=== PATIENT | female | born 2000 | race Caucasian/White ===

== ENCOUNTER 2019-06-06 14:04 | Emergency (ER) | payer OTHER ==
--- NOTE | 2019-06-06 14:16 | ER Document Report ---
ED Medical Screen (RME) - General Chief Complaint: Vaginal Bleeding Stated Complaint: VAGINAL BLEEDING/CRAMPING Time Seen by Provider: 06/06/19 14:12 Mode of Arrival: Ambulatory Information source: Patient Notes: 19-year-old female presented to ED for complaint of pelvic pain vaginal bleeding. She states she is on Accutane so she is gone IUD. She states the pain has been since May when her IUD was placed. States this is a very abnormal stress cycle for her. She states it is bright red with lots of clots. States she had a giant clot this morning. She states that they IUD was inserted she had a lot of pain and was only able to lay down due to the pain the neck states she did not have pain and then the next days she had pain and she has had pain ever since then. She states she does not smoke drink or use any drugs. She states she came to the emergency room today because the pain was so bad she could not get up and work but her pain is now a level 3-4/5. - Related Data Allergies/Adverse Reactions: No Known Allergies Allergy (Unverified 06/06/19 14:10) Physical Exam - Vital signs Vitals: Temp Pulse Resp BP Pulse Ox 97.6 F 74 16 130/70 H 100 06/06/19 14:09 06/06/19 14:09 06/06/19 14:09 06/06/19 14:09 06/06/19 14:09 Course - Vital Signs Vital signs: Temp Pulse Resp BP Pulse Ox 97.6 F 74 16 130/70 H 100 06/06/19 14:09 06/06/19 14:09 06/06/19 14:09 06/06/19 14:09 06/06/19 14:09
[2019-06-06 15:08] LABS: ABSOLUTE LYMPHOCYTES (AUTO) 1.6 10^3/uL (0.5-4.7); ABSOLUTE MONOCYTES (AUTO) 0.3 10^3/uL (0.1-1.4); ABSOLUTE NEUT (AUTO) 7.7 10^3/uL (1.7-8.2); BASOPHILS % (AUTO) 0.5 % (0-2); EOSINOPHILS % (AUTO) 0.5 % (0-6); HEMATOCRIT 42.2 % (36.0-47.0); HEMOGLOBIN 14.3 g/dL (12.0-15.5); LYMPHOCYTES % (AUTO) 16.7 % (13-45); MEAN CORPUSCULAR HEMOGLOBIN 30.6 pg (27.0-33.4); MEAN CORPUSCULAR HGB CONC 33.8 g/dL (32.0-36.0); MEAN CORPUSCULAR VOLUME 90 fl (80-97); MONOCYTES % (AUTO) 2.7 % (3-13); PLATELET COUNT 405 10^3/uL (150-450); RED BLOOD COUNT 4.67 10^6/uL (3.72-5.28); RED CELL DISTRIBUTION WIDTH 13.6 % (11.5-14.0); SEGMENTED NEUTROPHILS % (AUTO) 79.6 % (42-78); TOTAL CELLS COUNTED % (AUTO) 100 %; WHITE BLOOD COUNT 9.6 10^3/uL (4.0-10.5)
[2019-06-06 15:23] LABS: APPEARANCE,URINE CLEAR; BILIRUBIN,URINE NEGATIVE (NEGATIVE); COLOR,URINE YELLOW; GLUCOSE, URINE NEGATIVE (NEGATIVE); KETONES,URINE NEGATIVE (NEGATIVE); PROTEIN,URINE NEGATIVE (NEGATIVE); URINE SPECIFIC GRAVITY 1.021; UROBILINOGEN,URINE NEGATIVE mg/dL (<2.0)
[2019-06-06 15:32] LABS: ALKALINE PHOSPHATASE 89 U/L (38-126); ANION GAP 9 (5-19); ASPARTATE AMINO TRANSFERASE 22 U/L (14-36); BILIRUBIN,DIRECT 0.1 mg/dL (0.0-0.4); BILIRUBIN,TOTAL 0.4 mg/dL (0.2-1.3); BLOOD UREA NITROGEN 14 mg/dL (7-20); CALCIUM 10.2 mg/dL (8.4-10.2); CARBON DIOXIDE 29 mmol/L (22-30); CHLORIDE 100 mmol/L (98-107); GLUCOSE 110 mg/dL (75-110); POTASSIUM 4.4 mmol/L (3.6-5.0); TOTAL PROTEIN 8.4 g/dL (6.3-8.2)
--- NOTE | 2019-06-06 15:57 | RADIOLOGY REPORT (SQ) ---
EXAM DESCRIPTION: U/S NON-OB PELVIS TV W/O DOP COMPLETED DATE/TIME: 06/06/2019 3:31 pm REASON FOR STUDY: vaginal bleeding iud pelvic pain COMPARISON: None. TECHNIQUE: Dynamic and static grayscale images acquired of the pelvis via transvaginal approach and recorded on PACS. Additional selected color Doppler and spectral images recorded. LIMITATIONS: None. FINDINGS: UTERUS: Contour normal. No mass. ENDOMETRIAL STRIPE: IUD is in place. Endometrium shows no masses. CERVIX: No nabothian cysts. RIGHT OVARY AND DOPPLER: Septated cyst in the right ovary measured 3.8 x 3.4 x 3.9 cm. Recommend bet a HCG evaluation. This most likely represents complex cyst. Ectopic cannot be excluded. LEFT OVARY AND DOPPLER: Normal size. No worrisome masses. Normal arterial vascular flow without evide nce for torsion. FREE FLUID: There is a small amount of free fluid in the cul de sac. OTHER: No other significant finding. MEASUREMENTS: UTERUS: 8.2 x 5.5 x 3.4 cm. ENDOMETRIAL STRIPE: 5.3 mm. [address]UD is in place. RIGHT OVARY: 3.8 x 3.9 x 4.3 cm. LEFT OVARY: 2.6 x 1.8 x 2.5 cm per IMPRESSION: Cystic lesion in the right ovary as described. This most likely represents complex cyst . Ectopic cannot be excluded. Correlation with beta HCG is recommended. TECHNICAL DOCUMENTATION: JOB ID: [id number] All Rights Reserved Rev Reading location - IP/workstation name: [email or web address]
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
[2019-06-06 18:56] LABS: T.VAGINALIS (WET MOUNT) NO TRICHOMONAS SEEN; WBCS (WET MOUNT) FEW WBCS SEEN; YEAST (WET MOUNT) NO YEAST SEEN
[2019-06-06 19:37] VITALS: BP 111/68
[2019-06-06 20:22] LABS: CHLAM PCR NOT DETECTED (NOT DETECT)
== END 2019-06-06 19:32 | disposition home or self-care (01) ==
LOC: ER 14:04
DX: N83.201 Unspecified ovarian cyst, right side (principal); Z97.5 Presence of (intrauterine) contraceptive device
CPT/HCPCS: 36415; 76830; 80053; 81001; 84702; 85025; 86850; 86900; 86901; 87086; 87210; 87491; 87591; 99284

== ENCOUNTER 2019-09-09 15:53 | Emergency (ER) | payer OTHER ==
[2019-09-09] MEDS ORDERED: ACETAMINOPHEN 325 MG TABLET PO ONE (16:48)
--- NOTE | 2019-09-09 16:50 | ER Document Report ---
ED Medical Screen (RME) - General Chief Complaint: Abdominal Pain Stated Complaint: ABDOMINAL PAIN,BACK PAIN,DIZZINESS Time Seen by Provider: 09/09/19 16:44 Primary Care Provider: ALEJANDRO HANKINS FNP-C [Primary Care Provider] - Follow up as needed Information source: Patient Notes: Patient states that she took several positive home test recently. Patient is G1, P0. Patient states she is had pelvic cramping for the past 4 days with vaginal bleeding. Patient states that she is occasionally passing clots. Patient reports feeling dizzy. I have greeted and performed a rapid initial assessment of this patient. A comprehensive ED assessment and evaluation of the patient, analysis of test results and completion of the medical decision making process will be conducted by additional ED providers. TRAVEL OUTSIDE OF THE [place] IN LAST 30 DAYS: No - Related Data Allergies/Adverse Reactions: cinnamon Allergy (Verified 09/09/19 16:39) nutmeg oil (Myristica seed oil) Allergy (Verified 09/09/19 16:39) Past Medical History Renal/ Medical History: Reports: Hx Ovarian Cysts Physical Exam - Vital signs Vitals: Temp Pulse Resp BP Pulse Ox 98.6 F 77 16 120/78 100 09/09/19 16:38 09/09/19 16:38 09/09/19 16:38 09/09/19 16:38 09/09/19 16:38 - Abdominal Tenderness: Tender - Lower pelvic tenderness Course - Vital Signs Vital signs: Temp Pulse Resp BP Pulse Ox 98.6 F 77 16 120/78 100 09/09/19 16:38 09/09/19 16:38 09/09/19 16:38 09/09/19 16:38 09/09/19 16:38 Doctor's Discharge - Discharge Referrals: ALEJANDRO HANKINS FNP-C [Primary Care Provider] - Follow up as needed
--- NOTE | 2019-09-09 17:19 | ER Document Report ---
ED GI/ - General Chief Complaint: Vaginal Bleeding Stated Complaint: ABDOMINAL PAIN,BACK PAIN,DIZZINESS Time Seen by Provider: 09/09/19 16:44 Primary Care Provider: ALEJANDRO HANKINS FNP-C [NO LOCAL MD] - Follow up as needed Notes: Patient is a 19-year-old female who presents emergency department with chief complaint of vaginal bleeding. Patient reports she currently has an IUD. She reports this was placed May 2018. Patient reports her last menstrual cycle was between July 15 and July 20. Patient reports she has had 4 home positive test. Patient reports on which was 4 days ago she started to have some pelvic cramping and vaginal bleeding. Patient reports this was different from than normal. As it was heavy initially and now it has been light spotting with occasional blood clots. Patient also reports about 4 to 5 days ago she noticed an increase clear drainage from the vagina. She reports this is nonodorous. Patient denies fever. TRAVEL OUTSIDE OF THE [place] IN LAST 30 DAYS: No - Related Data Allergies/Adverse Reactions: cinnamon Allergy (Verified 09/09/19 16:39) nutmeg oil (Myristica seed oil) Allergy (Verified 09/09/19 16:39) Home Medications: Klonipin, Absorbica Past Medical History - General Information source: Patient - Social History Smoking Status: Unknown if Ever Smoked Frequency of alcohol use: None Drug Abuse: None Lives with: Family Family History: None Patient has suicidal ideation: No Patient has homicidal ideation: No - Past Medical History Cardiac Medical History: Reports: None Pulmonary Medical History: Reports: None EENT Medical History: Reports: None Neurological Medical History: Reports: None Endocrine Medical History: Reports: None Renal/ Medical History: Reports: Hx Ovarian Cysts Malignancy Medical History: Reports: None GI Medical History: Reports: None Musculoskeletal Medical History: Reports None Skin Medical History: Reports None Psychiatric Medical History: Reports: None Traumatic Medical History: Reports: None Infectious Medical History: Reports: None Surgical Hx: Negative Review of Systems - Review of Systems Constitutional: No symptoms reported EENT: No symptoms reported Cardiovascular: No symptoms reported Respiratory: No symptoms reported Gastrointestinal: See HPI Genitourinary: No symptoms reported Female Genitourinary: See HPI Musculoskeletal: No symptoms reported Skin: No symptoms reported Hematologic/Lymphatic: No symptoms reported Neurological/Psychological: No symptoms reported Physical Exam - Vital signs Vitals: Temp Pulse Resp BP Pulse Ox 98.6 F 77 16 120/78 100 09/09/19 16:38 09/09/19 16:38 09/09/19 16:38 09/09/19 16:38 09/09/19 16:38 Interpretation: Normal - Notes Notes: GENERAL: Well-appearing, well-nourished and in no acute distress. HEAD: Atraumatic, normocephalic. EYES: Pupils equal round and reactive to light, extraocular movements intact, sclera anicteric, conjunctiva are normal. ENT: TMs normal, nares patent, oropharynx clear without exudates. Moist mucous membranes. NECK: Normal range of motion, supple without lymphadenopathy or JVD. LUNGS: Breath sounds clear to auscultation bilaterally and equal. No wheezes rales or rhonchi. HEART: Regular rate and rhythm without murmurs, rubs or gallops. ABDOMEN: Soft, nontender, normoactive bowel sounds. No guarding, no rebound. No masses appreciated. BACK: No cervical, thoracic, lumbar midline tenderness. No saddle anesthesia, normal distal neurovascular exam. GENITOURINARY: Deferred. EXTREMITIES: Normal range of motion, no pitting or edema. No clubbing or cyanosis. NEUROLOGICAL: Cranial nerves II through XII grossly intact. Normal speech, normal gait. PSYCH: Normal mood, normal affect. SKIN: Warm, Dry, normal turgor, no rashes or lesions noted. Course - Re-evaluation Re-evalutation: 09/09/19 17:37 Patient was taken to ultrasound. Will perform a pelvic examination with wet mount and rule out gonorrhea chlamydia. 09/09/19 18:50 Patient quant was negative. Patient does not have bacterial vaginosis, trichomonas or yeast. I will refer the patient to [facility] for follow-up. - Vital Signs Vital signs: Temp Pulse Resp BP Pulse Ox 98.6 F 77 16 120/78 100 09/09/19 16:38 09/09/19 16:38 09/09/19 16:38 09/09/19 16:38 09/09/19 16:38 - Laboratory Result Diagrams: 09/09/19 17:10 Laboratory results interpreted by me: 09/09/19 16:55 Urine Blood MODERATE H Ur Leukocyte Esterase MODERATE H Patient does not have a leukocytosis, anemia, alteration electrolytes or kidney function. Patient's hCG is negative with a less than 2 quant. Patient is O+. RhoGam is not indicated. Laboratory 09/09/19 09/09/19 09/09/19 16:55 17:10 17:10 WBC 6.4 RBC 4.44 Hgb 13.7 Hct 40.4 MCV 91 MCH 30.8 MCHC 33.8 RDW 13.1 Plt Count 341 Lymph % (Auto) 33.7 [place] % (Auto) 9.2 Eos % (Auto) 2.1 Baso % (Auto) 0.7 Absolute Neuts (auto) 3.5 Absolute Lymphs (auto) 2.2 Absolute Monos (auto) 0.6 Absolute Eos (auto) 0.1 Absolute Basos (auto) 0.0 Seg Neutrophils % 54.3 Beta HCG, Quant < 2.39 Total Beta HCG NEGATIVE Urine Color YELLOW Urine Appearance SLIGHTLY-CLOUDY Urine pH 6.0 Ur Specific [place] 1.015 Urine Protein NEGATIVE Urine Glucose (UA) NEGATIVE Urine Ketones NEGATIVE Urine Blood MODERATE H Urine Nitrite NEGATIVE Urine Bilirubin NEGATIVE Urine Urobilinogen NEGATIVE Ur Leukocyte Esterase MODERATE H Urine WBC (Auto) 3 Urine RBC (Auto) 3 U Hyaline Cast (Auto) 1 Squamous Epi Cells Auto 8 Urine Mucus (Auto) OCC Urine Ascorbic Acid NEGATIVE Blood Type Rhogam Indicated 09/09/19 17:10 WBC RBC Hgb Hct MCV MCH MCHC RDW Plt Count Lymph % (Auto) [place] % (Auto) Eos % (Auto) Baso % (Auto) Absolute Neuts (auto) Absolute Lymphs (auto) Absolute Monos (auto) Absolute Eos (auto) Absolute Basos (auto) Seg Neutrophils % Beta HCG, Quant Total Beta HCG Urine Color Urine Appearance Urine pH Ur Specific [place] Urine Protein Urine Glucose (UA) Urine Ketones Urine Blood Urine Nitrite Urine Bilirubin Urine Urobilinogen Ur Leukocyte Esterase Urine WBC (Auto) Urine RBC (Auto) U Hyaline Cast (Auto) Squamous Epi Cells Auto Urine Mucus (Auto) Urine Ascorbic Acid Blood Type O POSITIVE Rhogam Indicated RHOGAM NOT INDICATED - Diagnostic Test Radiology reviewed: Reports reviewed Radiology results interpreted by me: 09/09/19 18:50 Obstetrics Ultrasound 09/09/19 16:48 IMPRESSION: IUD PRESENT. NO VISUALIZED INTRA- OR EXTRAUTERINE . ECTOPIC CANNOT BE EXCLUDED. FOLLOW-UP ULTRASOUND AND SERIAL BHCG LEVELS STRONGLY RECOMMENDED TO ACCURATELY ASSESS STATUS. Procedures - Pelvic Exam Pelvic exam Time completed: 17:50 Cultures obtained: Yes Wet prep obtained: Yes Witnessed by: AARON JADE Notes: 09/09/19 18:02 Patient's external genitalia was unremarkable without erythema, edema or lesions. Patient tolerated the insertion of the speculum well. Was able to visualize the cervix and was able to visualize the IUD strings. There was no blood noted within the vaginal vault. Patient had a scant amount of beige discharge. Discharge - Discharge Clinical Impression: Pelvic cramping, Vaginal bleeding Condition: Stable Disposition: HOME, SELF-CARE Additional Instructions: *Today you are seen the emergency department for pelvic pain and vaginal bleeding. Your ultrasound was negative and did not show any mass, IUD was in its correct positioning, you do not have an ovarian cyst. Your test was negative via blood work. Please return to the emergency department for vomiting, severe abdominal pain, heavy vaginal bleeding or any new or worsening symptoms. Please follow-up with an [facility] if you continue to have pelvic pain and vaginal bleeding. Pelvic Pain There are many causes of pain in the pelvic area. The cause could be the tubes, ovaries, uterus, intestines, appendix, pelvic muscles and connective tissue, or the urinary tract. The cause of your pelvic pain is not clear. H owever, it seems safe to treat you outside the hospital. If the pain sounds like a temporary problem, we sometimes wait to see if it goes away. Other patients may need additional tests, such as pelvic ultrasound or cultures. Conditions may change. Call us or come back for reexamination if any problems occur, such as: (1) Pain that becomes more severe, steady, or becomes concentrated in one specific area. Also, pain that is more severe with movement or coughing. (2) Vomiting that persists or becomes more frequent. (3) Blood in the vomitus, urine, or bowel movements. Blood in the stool may have a tarry or black appearance. (4) Shaking chills or fever greater than 100 degrees. (5) The abdomen becomes more distended or swollen. (6) Bowel movements cease. (7) Heavy vaginal bleeding. Referrals: [facility] [Provider Group] - Follow up as needed
[2019-09-09 17:26] LABS: APPEARANCE,URINE SLIGHTLY-CLOUDY; BILIRUBIN,URINE NEGATIVE (NEGATIVE); COLOR,URINE YELLOW; GLUCOSE, URINE NEGATIVE (NEGATIVE); KETONES,URINE NEGATIVE (NEGATIVE); LEUKOCYTE ESTERASE,URINE MODERATE (NEGATIVE); NITRITE,URINE NEGATIVE (NEGATIVE); PROTEIN,URINE NEGATIVE (NEGATIVE); URINE SPECIFIC GRAVITY 1.015; UROBILINOGEN,URINE NEGATIVE mg/dL (<2.0)
[2019-09-09 17:30] LABS: ABSOLUTE EOSINOPHILS # (AUTO) 0.1 10^3/uL (0.0-0.6); ABSOLUTE LYMPHOCYTES (AUTO) 2.2 10^3/uL (0.5-4.7); ABSOLUTE MONOCYTES (AUTO) 0.6 10^3/uL (0.1-1.4); ABSOLUTE NEUT (AUTO) 3.5 10^3/uL (1.7-8.2); BASOPHILS % (AUTO) 0.7 % (0-2); EOSINOPHILS % (AUTO) 2.1 % (0-6); HEMATOCRIT 40.4 % (36.0-47.0); HEMOGLOBIN 13.7 g/dL (12.0-15.5); LYMPHOCYTES % (AUTO) 33.7 % (13-45); MEAN CORPUSCULAR HEMOGLOBIN 30.8 pg (27.0-33.4); MEAN CORPUSCULAR HGB CONC 33.8 g/dL (32.0-36.0); MEAN CORPUSCULAR VOLUME 91 fl (80-97); MONOCYTES % (AUTO) 9.2 % (3-13); PLATELET COUNT 341 10^3/uL (150-450); RED BLOOD COUNT 4.44 10^6/uL (3.72-5.28); RED CELL DISTRIBUTION WIDTH 13.1 % (11.5-14.0); SEGMENTED NEUTROPHILS % (AUTO) 54.3 % (42-78); TOTAL CELLS COUNTED % (AUTO) 100 %; WHITE BLOOD COUNT 6.4 10^3/uL (4.0-10.5)
--- NOTE | 2019-09-09 18:11 | RADIOLOGY REPORT (SQ) ---
EXAM DESCRIPTION: U/S OB TRANSVAGINAL W/O DOP COMPLETED DATE/TIME: 09/09/2019 5:40 pm REASON FOR STUDY: pelvic cramping, bleeding COMPARISON: Pelvic ultrasound 06/06/2019. TECHNIQUE: Transvaginal static and realtime grayscale images acquired of the pelvis. Additional darell cted spectral and color Doppler images recorded. All images stored on PACs. CLINICAL AGE: LMP 07/15/2019. EGA 8 weeks 0 days. BHCG: Pending. LIMITATIONS: None. FINDINGS: UTERUS: The uterus measures 6.9 x 3.2 x 5.1 cm. The endometrium measures 9 mm in double w all thickness. An intrauterine device is noted at the endometrial cavity. No visualized intrauterin e . The cervix measures 2.8 cm in length. RIGHT ADNEXA: The right ovary measures 2.9 x 3.5 x 2.2 cm. Flow by Doppler was shown to the right ov henri. Small follicles are noted. LEFT ADNEXA: The left ovary measures 2.9 x 3.7 x 1.9 cm. Flow by Doppler was shown to the left ovary . Small follicles are noted. FREE FLUID: None. IMPRESSION: IUD PRESENT. NO VISUALIZED INTRA- OR EXTRAUTERINE . ECTOPIC CANNOT BE EXCLUDED. FOLLOW-UP ULTRASOUND AND SERIAL BHCG LEVELS STRONGLY RECOMMENDED TO ACCURATELY ASSESS STATU S. TECHNICAL DOCUMENTATION: JOB ID: [id number] [employer]- All Rights Reserved Reading location - IP/workstation name: [email or web address]
[2019-09-09 18:12] LABS: BACTERIA (WET MOUNT) 3+ BACTERIA SEEN; EPITHELIALS (WET MOUNT) 3+ EPITHELIALS SEEN; RBCS (WET MOUNT) RARE RBCS SEEN; T.VAGINALIS (WET MOUNT) NO TRICHOMONAS SEEN; WBCS (WET MOUNT) RARE WBCS SEEN; YEAST (WET MOUNT) NO YEAST SEEN
[2019-09-09 19:30] VITALS: BP 111/66
[2019-09-09 19:41] LABS: CHLAM PCR NOT DETECTED (NOT DETECT)
== END 2019-09-09 19:26 | disposition home or self-care (01) ==
LOC: ER 15:53
DX: N93.9 Abnormal uterine and vaginal bleeding, unspecified (principal); R10.2 Pelvic and perineal pain; N89.8 Other specified noninflammatory disorders of vagina; Z79.899 Other long term (current) drug therapy; Z97.5 Presence of (intrauterine) contraceptive device; Z91.018 Allergy to other foods
CPT/HCPCS: 36415; 76817; 81001; 84702; 85025; 86900; 86901; 87210; 87491; 87591; 99284

== ENCOUNTER 2019-11-20 22:17 | Emergency (ER) | payer OTHER ==
[2019-11-20] MEDS ORDERED: ONDANSETRON 4 MG TAB.RAPDIS PO ONE (23:00)
[2019-11-20] MEDS ORDERED: KETOROLAC TROMETHAMINE 60 MG/2 ML SDV IM ONE (23:00)
--- NOTE | 2019-11-20 23:02 | ER Document Report ---
ED General - General Chief Complaint: Urinary Problem Stated Complaint: POSS KIDNEY STONE Primary Care Provider: CURLY KING PA-C [Primary Care Provider] - Follow up as needed Notes: 19 oh female presents with flank pain bilateral lower radiating to lower abdomen with dark urine. She thinks it is a kidney stone. Never had before. No fevers. Has been nauseous tonight. No diarrhea. Has been constipated for 5 days. History of rectal bleeding and abdominal discomfort for 2 months being worked up by primary care also hemiplegic migraines. TRAVEL OUTSIDE OF THE [place] IN LAST 30 DAYS: No - Related Data Allergies/Adverse Reactions: cinnamon Allergy (Verified 11/20/19 22:28) nutmeg oil (Myristica seed oil) Allergy (Verified 11/20/19 22:28) Home Medications: TIZANDINE. MAG SALT. CLONAZEPAM Past Medical History - Social History Smoking Status: Never Smoker Family History: None Patient has suicidal ideation: No Patient has homicidal ideation: No Renal/ Medical History: Reports: Hx Ovarian Cysts Review of Systems - Review of Systems Notes: REVIEW OF SYSTEMS GEN: Denies fever, chills, weight loss ENT: Denies sore throat, nasal discharge, ear pain EYES: Denies blurry vision, eye pain, discharge CV: Denies chest pain, palpitations, edema RESP: Denies cough, shortness of breath, wheezing GI: Abdominal pain and vomiting ilene MSK: back pain SKIN: Denies rash, skin lesions LYMPH: Denies swollen glands/lymph nodes NEURO: Denies headache, focal weakness or numbness, dizziness PSYCH: Denies depression, suicidal or homicidal ideation PHYSICAL EXAMINATION General: No acute distress, well-nourished Head: Atraumatic, normocephalic ENT: Mouth normal, oropharynx moist, no exudates or tonsillar enlargement Eyes: Conjunctiva normal, pupils equal, lids normal Neck: No JVD, supple, no guarding CVS: Normal rate, regular rhythm, no murmurs Resp: No resp distress, equal and normal breath sounds bilaterally GI: Ext: No deformities, no edema, normal range of motion in upper and lower ext Back: No CVA or midline TTP Skin: No rash, warm Lymphatic: No lymphadeopathy noted Neuro: Awake, alert. Face symmetric. GCS 15. Physical Exam - Vital signs Vitals: Temp Pulse Resp BP Pulse Ox 98.0 F 87 16 132/69 H 100 11/20/19 22:27 11/20/19 22:27 11/20/19 22:27 11/20/19 22:27 11/20/19 22:27 Course - Re-evaluation Re-evalutation: 11/21/19 00:43 Patient presents with flank pain and dysuria likely pyelonephritis but will rule out stone. Also has 2 months of rectal bleeding with abdominal pain intermittentlythis needs to be evaluated by GI. Her urine is positive, her CT does not show acute stone disease. Patient is stable for discharge home after symptom relief with ED medications. NSAID antiemetic and antibiotic. Recommended GI follow-up for the GI type symptoms. I have discussed with the patient there likely diagnosis, aftercare plan, follow-up plans and my usual and customary return precautions. They verbalized understanding of this. - Vital Signs Vital signs: Temp Pulse Resp BP Pulse Ox 98.0 F 87 16 132/69 H 100 11/20/19 22:27 11/20/19 22:27 11/20/19 22:27 11/20/19 22:27 11/20/19 22:27 - Laboratory Laboratory results interpreted by me: 11/20/19 23:22 Urine Blood LARGE H Ur Leukocyte Esterase MODERATE H Discharge - Discharge Clinical Impression: Pyelonephritis Condition: Good Disposition: HOME, SELF-CARE Instructions: Antibiotic Therapy ([facility]), Antinausea Medication ([facility]), Pyelonephritis ([facility]) Prescriptions: Ondansetron [Zofran Odt 4 mg Tablet] 1 - 2 tab PO Q4HP PRN #10 tab.rapdis PRN Reason: Ibuprofen [Motrin 600 mg Tablet] 600 mg PO Q8HP PRN #90 tablet PRN Reason: Cefuroxime Axetil [Ceftin 500 mg Tablet] 1 tab PO BID #20 tablet Referrals: CURLY KING PA-C [Primary Care Provider] - Follow up as needed
[2019-11-20 23:46] LABS: APPEARANCE,URINE SLIGHTLY-CLOUDY; BILIRUBIN,URINE NEGATIVE (NEGATIVE); COLOR,URINE YELLOW; GLUCOSE, URINE NEGATIVE (NEGATIVE); KETONES,URINE NEGATIVE (NEGATIVE); LEUKOCYTE ESTERASE,URINE MODERATE (NEGATIVE); NITRITE,URINE NEGATIVE (NEGATIVE); PROTEIN,URINE NEGATIVE (NEGATIVE); UROBILINOGEN,URINE NEGATIVE mg/dL (<2.0)
[2019-11-21 00:56] VITALS: BP 125/70
--- NOTE | 2019-11-21 01:14 | RADIOLOGY REPORT (SQ) ---
CLINICAL INDICATION: B flank pn hemautira. Hematuria. Bilateral flank pain. TECHNIQUE: Noncontrast spiral axial CT imaging was obtained of the abdomen and pelvis with multiplanar reconstructions. This exam was performed according to our departmental dose-optimization program, which includes automated exposure control, adjustment of the mA and/or kV according to patient size and/or use of iterative reconstruction techniques. COMPARISON: None. CORRELATION: None. FINDINGS: Abdomen: The lung bases are grossly clear. The heart is of normal size. No evidence of pleural or pericardial fluid. The liver is of normal size contour and attenuation. The gallbladder is surgically absent. The pancreas is not well seen. The spleen is unremarkable. The adrenals are unremarkable. The kidneys appear grossly normal without evidence of urolithiasis or hydronephrosis. There is no evidence of free air. Trace free fluid, likely physiologic. No bulky adenopathy. Abdominal aorta is nonaneurysmal. Pelvis: The bowel is nonobstructed. The bowel is unopacified with oral contrast. Pelvic contents demonstrate an IUD within the uterus. The appendix is not seen. No pericecal inflammatory change. Visualized bones are unremarkable. IMPRESSION: No acute intra-abdominal process is identified. The cause of the patient's flank pain and hematuria is not identified on this examination..
== END 2019-11-21 00:55 | disposition home or self-care (01) ==
LOC: ER 22:17
DX: N12 Tubulo-interstitial nephritis, not specified as acute or chronic (principal); R39.198 Other difficulties with micturition; R10.31 Right lower quadrant pain; R10.32 Left lower quadrant pain; R11.10 Vomiting, unspecified; M54.9 Dorsalgia, unspecified; R10.9 Unspecified abdominal pain; Z88.8 Allergy status to other drugs, medicaments and biological substances; Z79.899 Other long term (current) drug therapy
CPT/HCPCS: 99284; 96372; 81025; 81001; 74176; J1885; S0119